=== PATIENT | male | born 1940 | race Caucasian/White ===

== ENCOUNTER → 2017-11-10 | Outpatient (CLI) | payer MEDICARE, BC ==
[2017-11-10 12:56] LABS: ADD MAN DIFF? NO
[2017-11-10 13:01] LABS: WHITE BLOOD COUNT 6.5 10^3/ul (4.8-10.8)
[2017-11-10 13:01] LABS: BASOPHILS % 0.3 % (0.0-2.0); EOSINOPHILS # 0.1 10^3/ul (0.0-0.5); HEMATOCRIT 44.3 % (42.0-52.0); HEMOGLOBIN 14.4 g/dl (14.0-18.0); LYMPHOCYTES # 1.3 10^3/ul (0.8-2.9); LYMPHOCYTES % 20.4 % (15.0-51.0); MEAN CORPUSCULAR HEMOGLOBIN 30.2 pg (29.0-33.0); MEAN CORPUSCULAR HGB CONC 32.5 g/dl (32.0-37.0); MEAN CORPUSCULAR VOLUME 92.9 fl (82.0-101.0); MEAN PLATELET VOLUME 11.3 fl (7.4-10.4); MONOCYTE # 0.5 10^3/ul (0.3-0.9); MONOCYTES % 8.3 % (0.0-11.0); NEUTROPHIL # 4.5 10^3/ul (1.6-7.5); NEUTROPHILS % 68.8 % (39.0-77.0); PLATELET COUNT 191 10^3/UL (140-415); RED BLOOD COUNT 4.77 10^6/ul (4.70-6.10); RED CELL DISTRIBUTION WIDTH 13.8 % (11.5-14.5)
[2017-11-10 13:26] LABS: C-REACTIVE PROTEIN < 0.5 mg/dl (0.0-0.9)
[2017-11-10 14:03] LABS: ERYTHROCYTE SEDIMENTATION RATE 13 mm/Hr (0-20)
== END | disposition home or self-care (01) ==
LOC: LAB 12:17
DX: Z96.653 Presence of artificial knee joint, bilateral (principal)
CPT/HCPCS: 85025; 85651; 86140

== ENCOUNTER → 2017-11-12 | Outpatient (CLI) | payer MEDICARE, BC | END | disposition home or self-care (01) | LOC: NUC 10:43 | DX: M25.561 Pain in right knee (principal) | CPT/HCPCS: 78315; A9503 ==